=== PATIENT | female | born 1960 | race Caucasian/White ===

== ENCOUNTER → 2022-04-30 | Day surgery (SDC) | payer OTHER ==
[~2022-04-30] MED LIST: ASPIRIN81 MG PO; BUPIVACAINE HCL 0.5% 10ML MPF VIAL INJ ONE; HYDROCODON-ACE1 EA11 PO; LEXAPRO20 MG PO; LIDOCAINE HCL 2% LOCAL INJ 5 ML SDV VIAL INJ ONE; METOCLOPRAMIDE HCL 10 MG/2ML VIAL IV ONE; METOPROLOL SUCC25 MG PO; MUPIROCIN 2% OINT 22 GM TUBE ONE; POVIDONE IODINE 0.05% 0.05 % ML PO ONE; PROPOFOL IV EMULSION 10 MG/ML 20 ML VIAL IV ONE; REPATHA PU420 MG/3.5; SEVOFLURANE INHAL SOLN 250 ML PEN BTL INH ONE
[2022-04-30 08:15] VITALS: BP 138/68
== END | disposition home or self-care (01) ==
LOC: OR 06:58
PROVIDERS: ATTEND Plastic Surgery
DX: G56.02 Carpal tunnel syndrome, left upper limb (principal); M65.842 Other synovitis and tenosynovitis, left hand; G47.33 Obstructive sleep apnea (adult) (pediatric); J43.9 Emphysema, unspecified; E78.5 Hyperlipidemia, unspecified; Z88.6 Allergy status to analgesic agent; Z88.2 Allergy status to sulfonamides; Z01.810 Encounter for preprocedural cardiovascular examination; Z01.818 Encounter for other preprocedural examination; Z79.82 Long term (current) use of aspirin; Z79.899 Other long term (current) drug therapy; Z87.891 Personal history of nicotine dependence
CPT/HCPCS: 25115; 71046; 93005; J0690; J2001; J2765